=== PATIENT | female | born 1970 | race Two or more races ===

== ENCOUNTER → 2016-11-06 | Day surgery (SDC) | payer OTHER ==
[~2016-11-06] MED LIST: ATOR20TA58 PO; CALC-77 PO; LIDOCAINE 1%/EPI 1:100,000 20 ML VIAL. ONE; LIDOCAINE 2%/EPI 1:100,000 20 ML VIAL. IJ ONE; MULT-245 PO
[2016-11-06 07:22] VITALS: BP 95/60
--- NOTE | 2016-11-06 08:34 | PDOC ---
BRIEF OPERATIVE NOTE Date: Nov 06, 2016 Pre-Op Diagnosis Upper back mass Post-Op Diagnosis Same Procedure Performed Excision of mass Surgeon Raymond Anesthesia Type: Local Blood Loss 5ml Specimens Obtained mass Findings as above Complications None MICHEAL MELTON MD Nov 06, 2016 08:34
--- NOTE | 2016-11-06 08:35 | DISCH ---
DISCHARGE INSTRUCTIONS Condition on Discharge Condition on Discharge: Stable Activity After Discharge Activity Instructions for Disc: No restrictions Diet after Discharge Diet after Discharge: Regular Wound Incision Care Other wound/incision instructi: May shower in 24 hours Contacting the after DC Call your doctor for: If your condition worsens Follow-Up Follow up with: Dr Melton in 2 weeks MICHEAL MELTON MD Nov 06, 2016 08:35
--- NOTE | 2016-11-06 12:23 | OP ---
DATE OF SURGERY: 11/06/2016 PREOPERATIVE DIAGNOSIS: Sebaceous cyst of the upper back. POSTOPERATIVE DIAGNOSIS: Sebaceous cyst of the upper back. PROCEDURE: Excision of cyst. SURGEON: Jimmy Melton MD INDICATIONS: The patient is a 46-year-old female who has complained of an enlarging mass on her upper back. Procedure of excision was explained to the patient in detail. Risks and benefits were also discussed including bleeding and infection. Alternatives of this procedure were also discussed with the patient who seemed to understand and gave verbal and written consent to have the procedure performed. DESCRIPTION OF PROCEDURE: The patient was taken in the outpatient procedure area. Area was prepped with ChloraPrep and injected with 1% lidocaine with epinephrine. Once this was completely anesthetized, an incision was made over this mass. This was carried down through the subcutaneous tissue using a 15 blade scalpel. The cyst was excised and the wound was then closed in 2 layers, deep layer of running 3-0 Vicryl and the skin was reapproximated with 4-0 subcuticular Monocryl. Mastisol, Steri-Strips and Band-Aids were applied as dressings. The patient tolerated the procedure well and was discharged home in stable condition. All sponge and instrument counts listed as correct. Estimated blood loss 5 mL. JIMMY MELTON MD DR: MICHAEL/lisa JOB#: [id number] / [id number]
--- NOTE | 2016-11-07 13:40 | PATHOLOGY ---
PATHOLOGY REPORT * * * * * * * * FINAL DIAGNOSIS: Skin and subcutaneous tissue, back cyst: - Follicular cyst, infundibular type, ruptured, with chronic inflammation and foreign body granulomatous reaction. COMMENT: There is no evidence of malignancy. (JPM:csd; d/t: 11/07/2016) REPORT ELECTRONICALLY SIGNED BY: Carlton Walters M.D. DATE/TIME: 11/07/2016 13:38 * * * * * * * * GROSS PATHOLOGY: The specimen is received in formalin, labeled "Jorge Duval and back cyst." Received is a 1.9 x 0.3 x 0.9 cm unoriented ellipse of skin and subcutaneous tissue. The epidermal surface is morton, wrinkled, and grossly unremarkable. The resection margin is inked black and the specimen is sectioned to reveal a hemorrhagic, variegated yellow-morton to white-morton, and lobulated cut surface. Mannequin [employer]orator sections are submitted cassette A1. (TTL:carmen; 11/06/2016) INITIAL CPT CODE(S): A; 21785 Professional services performed [place] [facility] [address] Technical services performed by [facility] at [address] [place] [address]. SPECIMEN(S) RECEIVED: A.Back cyst CLINICAL HISTORY: Back cyst PATIENT: JORGE DUVAL /AGE: 604/24/1970 (Age: 46) PATIENT #: [id number] ALT CASE #: SPECIMEN COLLECTION DATE: 11/06/2016 SPECIMEN RECEIVED DATE: 11/06/2016 [facility] - [id number] [place] [address] - PHONE: [phone] * * * END OF REPORT * * *
== END | disposition home or self-care (01) ==
LOC: SURG 07:10
PROVIDERS: ATTEND Surgery
DX: L72.8 Other follicular cysts of the skin and subcutaneous tissue (principal); E78.00 Pure hypercholesterolemia, unspecified; M19.90 Unspecified osteoarthritis, unspecified site; Z90.49 Acquired absence of other specified parts of digestive tract
CPT/HCPCS: 11402; 12031; 88304; J3490